=== PATIENT | male | born 1980 | race African-American/Black ===

== ENCOUNTER 2017-02-09 16:45 | Emergency (ER) | payer OTHER ==
[~2017-02-09] VITALS: Ht 170.2 cm; Wt 104.3 kg
--- NOTE | 2017-02-09 17:14 | ER.PDOC ---
General Chief Complaint: Eye Problems Stated Complaint: EYE PROBLEMS Time seen by MD: 17:00 Source: patient History of Present Illness Timing/Duration: gradual Associated Symptoms: redness, matting, eyelid swelling Location: both eyes Severity: mild Apparent Inury: No Allergies: Coded Allergies: No Known Allergies (Unverified , 02/09/17) Home Meds No Active Prescriptions or Reported Meds Past Medical History Medical History: no pertinent history Surgical History: no surgical history Social History Smoking: non-smoker Alcohol Use: none Drug Use: none All Other Systems: Reviewed and Negative Physical Exam General Appearance: alert, no distress Visual Acuity: no globe trauma Eyelid: (L) edema, (R) erythema, (L) erythema, everted for exam (L) Conjunctiva/Sclera: (R) injected, (L) injected, (L) exudate Corneas: nml inspection EOM's: intact, no nystagmus Pupils: PERRL, nml accommodation Head/ENT: nml inspection, pharynx nml Skin Exam: Normal Color, Warm/Dry Resp/CVS: no resp distress, lungs clear, heart sounds nml, reg. rate & rhythm Abdomen: non-tender, no organomegaly NEURO/PSYCH: oriented X3, mood/effect nml Departure Time of Disposition: 17:33 Disposition: 01 HOME, SELF-CARE Impression: Primary Impression: Conjunctivitis Referrals: PCP,UNKNOWN (PCP) PRIMARY CARE PROVIDER Scripts No Active Prescriptions or Reported Meds ALLI KHAN MD Feb 09, 2017 17:14
== END 2017-02-09 17:30 | disposition home or self-care (01) ==
LOC: ER 16:45
DX: H10.9 Unspecified conjunctivitis (principal)
CPT/HCPCS: 99283